=== PATIENT | male | born 1995 | race African-American/Black ===

== ENCOUNTER 2017-08-13 09:35 | Emergency (ER) | payer SELFPAY ==
[2017-08-13 10:10] VITALS: BP 135/60
[2017-08-13] MEDS ORDERED: LIDOCAINE 1% / SOD BICARB 8.4% 20 ML VIAL. IJ ONE ×2 (10:19→10:30)
--- NOTE | 2017-08-13 11:21 | PHYS DOC ---
Past Medical History Past Medical History: No Pertinent History Past Surgical History: No Surgical History Alcohol Use: None Drug Use: None Adult General Chief Complaint Chief Complaint: LACERATION/AVULSION HPI HPI Patient is a 22 year old left handed male who presents with left index finger laceration. Patient states he accidentally cut himself with a knife. Review of Systems Review of Systems Constitutional: Denies fever or chills [] Musculoskeletal: Denies back pain or joint pain [] Integument: Left index finger laceration Neurologic: Denies headache, focal weakness or sensory changes [] All other systems were reviewed and found to be within normal limits, except as documented in this note. Current Medications Current Medications Current Medications Medications (Trade) Dose Ordered Sig/Jaleesa Start Time Stop Time Status Last Admin Dose Admin Lidocaine/Sodium Bicarbonate (Buffered Lidocaine 1%) 20 ml 1X ONCE 08/13/17 10:30 08/13/17 10:31 DC 08/13/17 10:34 20 ML Allergies Allergies Allergies Coded Allergies Type Severity Reaction Last Updated Verified No Known Drug Allergies 08/13/17 No Physical Exam Physical Exam Constitutional: Well developed, well nourished, no acute distress, non-toxic appearance. [] Skin: Warm, dry, left lateral index finger proximal end with a laceration approximately 2 cm long. There is no obvious tendon involvement. Full range of motion to the left index finger including flexion and extension at the MIP PIP and DIP joints. Adequate radius sensation to the left index finger. +2 left radial pulse. Cap refill less than 2 seconds the left index finger. Back: No tenderness, no CVA tenderness. [] Extremities: No tenderness, no cyanosis, no clubbing, ROM intact, no edema. [] Neurologic: Alert and oriented X 3, normal motor function, normal sensory function, no focal deficits noted. [] Psychologic: Affect normal, judgement normal, mood normal. [] Current Patient Data Vital Signs Vital Signs Date Time Temp Pulse Resp B/P (MAP) Pulse Ox O2 Delivery O2 Flow Rate FiO2 08/13/17 10:10 98.1 70 18 99 Room Air 98.1 EKG EKG [] Radiology/Procedures Radiology/Procedures [] Course & Med Decision Making Course & Med Decision Making Pertinent Labs and Imaging studies reviewed. (See chart for details) Patient is in the ED with left index finger laceration. He was set up for laceration repair and he eloped. Domenica Disclaimer Domenica Disclaimer This electronic medical record was generated, in whole or in part, using a voice recognition dictation system. Departure Departure Impression: Primary Impression: Laceration of left index finger Disposition: 07 AGAINST MEDICAL ADVICE Condition: STABLE Problem Qualifiers Primary Impression: Laceration of left index finger Encounter type: initial encounter Damage to nail status: without damage Foreign body presence: unspecified Qualified Codes: S61.211A - Laceration without foreign body of left index finger without damage to nail, initial encounter MATHEW FARRELL [employer] MANAGING DIRECTOR Aug 13, 2017 11:21
== END 2017-08-13 11:12 | disposition left against medical advice (07) ==
LOC: ER 09:35
DX: S61.211A Laceration without foreign body of left index finger without damage to nail, initial encounter (principal); W26.0XXA Contact with knife, initial encounter; Y93.89 Activity, other specified; Y99.8 Other external cause status; Y92.89 Other specified places as the place of occurrence of the external cause
CPT/HCPCS: 96372; 99283-25

== ENCOUNTER 2017-08-14 11:15 | Emergency (ER) | payer SELFPAY ==
[~2017-08-14] VITALS: Ht 182.9 cm; Wt 122.5 kg
[2017-08-14 11:25] VITALS: BP 133/68
--- NOTE | 2017-08-14 11:31 | PHYS DOC ---
Past Medical History Past Medical History: No Pertinent History Past Surgical History: No Surgical History Alcohol Use: None Drug Use: None Adult General Chief Complaint Chief Complaint: LACERATION/AVULSION HPI HPI Patient is a 22 year old male who presents with left index finger laceration that occurred yesterday. Patient cut himself accidentally with a knife. Patient was in the ED yesterday with set them up for suture repair and he eloped. Review of Systems Review of Systems Constitutional: Denies fever or chills [] Musculoskeletal: Denies back pain or joint pain [] Integument: Left index finger laceration Neurologic: Denies headache, focal weakness or sensory changes [] All other systems were reviewed and found to be within normal limits, except as documented in this note. Allergies Allergies Allergies Coded Allergies Type Severity Reaction Last Updated Verified No Known Drug Allergies 08/13/17 No Physical Exam Physical Exam Constitutional: Well developed, well nourished, no acute distress, non-toxic appearance. [] Skin: Warm, dry, left lateral index finger proximal end with a laceration approximately 2 cm long. There is no obvious tendon involvement. Full range of motion to the left index finger including flexion and extension at the MIP PIP and DIP joints. Adequate radius sensation to the left index finger. +2 left radial pulse. Cap refill less than 2 seconds the left index finger. Back: No tenderness, no CVA tenderness. [] Extremities: No tenderness, no cyanosis, no clubbing, ROM intact, no edema. [] Neurologic: Alert and oriented X 3, normal motor function, normal sensory function, no focal deficits noted. [] Psychologic: Affect normal, judgement normal, mood normal. [] EKG EKG [] Radiology/Procedures Radiology/Procedures [] Course & Med Decision Making Course & Med Decision Making Pertinent Labs and Imaging studies reviewed. (See chart for details) Patient is in the ED with left index laceration that occurred yesterday. He was in the ED yesterday and eloped. Informed laceration cannot be closed today. Informed the laceration will heal by secondary intention. Recommended Neosporin to the area and provided wound care instructions as well as return precautions. Discharged in stable condition. Tetanus is up-to-date. Dragon Disclaimer Dragon Disclaimer This electronic medical record was generated, in whole or in part, using a voice recognition dictation system. Departure Departure Impression: Primary Impression: Laceration of left index finger Disposition: HOME, SELF-CARE Condition: STABLE Referrals: NO PCP (PCP) Follow-up with your doctor in 1-2 weeks as needed Patient Instructions: Laceration Care, Adult Additional Instructions: You were seen with left index finger laceration that occurred yesterday. The laceration has been open for more than 24 hours and cannot be closed with stitches. The laceration will heal by secondary intention. Apply Neosporin to the area twice a day. Keep it clean and dry. You can cover it if it's draining otherwise it can be left open to air. Monitor it for signs of infection including increased redness warmth or yellow drainage from the area and return to the ED. Follow-up with your doctor in 1-3 weeks. Problem Qualifiers Primary Impression: Laceration of left index finger Encounter type: subsequent encounter Damage to nail status: without damage Foreign body presence: without foreign body Qualified Codes: S61.211D - Laceration without foreign body of left index finger without damage to nail, subsequent encounter MATHEW FARRELL APRN Aug 14, 2017 11:31
== END 2017-08-14 11:44 | disposition home or self-care (01) ==
LOC: ER 11:15
DX: S61.211A Laceration without foreign body of left index finger without damage to nail, initial encounter (principal); W26.0XXA Contact with knife, initial encounter; Y93.89 Activity, other specified; Y99.8 Other external cause status; Y92.89 Other specified places as the place of occurrence of the external cause
CPT/HCPCS: 99281